=== PATIENT | female | born 1980 | race Two or more races ===

== ENCOUNTER 2018-04-09 20:29 | Emergency (ER) | payer BC ==
[2018-04-09 20:43] VITALS: BP 118/74
[2018-04-09] MEDS ORDERED: Metoclopramide 10 MG/2 ML SDV IVPUSH ONE (20:51)
[2018-04-09] MEDS ORDERED: HYDROmorphone 1 MG/ML Syringe IVPUSH ONE (20:51)
--- NOTE | 2018-04-09 20:55 | EDM.PDOC ---
ED HPI GENERAL MEDICAL PROBLEM - General Chief Complaint: Abdominal Pain Stated Complaint: BAD ABDOMINAL PAIN Time Seen by Provider: 04/09/18 20:50 Source of Information: Reports: Patient History Limitations: Reports: No Limitations - History of Present Illness INITIAL COMMENTS - FREE TEXT/NARRATIVE: 37-year-old female of [place] descent presents to the ED with complaints of mid abdominal pain with nausea and vomiting since this morning. Apparently breakfast came back up and she hasn't eaten since. She is complaining of intermittent strong colicky cramping abdominal pain. She's had diarrhea times one or one loose stool. No blood was noted in either emesis or stool. Previous abdominal surgery is that of a laparoscopic cholecystectomy. The patient doesn't directly speak with me. She is lying there with her eyes closed. Was very cooperative with the nursing staff either. She refused to get out of the wheelchair and onto the bed. To be very histrionic. History is provided by his son and her . Of note she is on Seroquel and other psychoactive medications. Onset: Today Onset Date: 04/09/18 Onset Time: 08:00 Duration: Hour(s): Location: Reports: Abdomen (Mid abdominal pain. Apparently is quite colicky as it is intermittent according to her .) Quality: Reports: Ache, Sharp, Stabbing Severity: Moderate (Most the pain is central abdomen and epigastrium.) Improves with: Reports: None Worsens with: Reports: None Associated Symptoms: Reports: Diaphoresis, Malaise, Nausea/Vomiting (Fairly is vomited twice or 3 times today. She's had diarrhea once.). Denies: Confusion, Chest Pain, Cough, cough w sputum Treatments AIRLINE DISPATCHER: Reports: Other (see below) (None.) mid epigastric Pain Score (Numeric/FACES): 8 - Related Data Allergies Allergy/AdvReac Type Severity Reaction Status Date / Time medroxyprogesterone acetate Allergy Rash Verified 04/09/18 20:43 [From Depo-Provera] Home Meds: Home Meds ALPRAZolam [Alprazolam Odt] 0.5 mg PO DAILY 07/06/15 [History] ClonazePAM [KlonoPIN] 0.5 mg PO BEDTIME 07/06/15 [History] Dicyclomine [Bentyl] 20 mg PO Q6H PRN #6 tablet 04/09/18 [Rx] Ondansetron [Zofran] 4 mg BUCCAL Q6H PRN #5 tab 04/09/18 [Rx] Past Medical History - Past Health History Medical/Surgical History: Denies Medical/Surgical History COOK SHIP History: Reports: Other COOK SHIP History: breast enlargement Psychiatric History: Reports: Anxiety, Depression (She is on venlafaxine and Seroquel.) Other Psychiatric History: insomnia - Past Surgical History GI Surgical History: Reports: Cholecystectomy Female Surgical History: Reports: Section, D&C, Tubal Ligation Social & Family History - Family History Family Medical History: Noncontributory - Tobacco Use Smoking Status *Q: Unknown Ever Smoked - Caffeine Use Caffeine Use: Reports: Other - Recreational Drug Use Recreational Drug Use: No - Living Situation & Occupation Living situation: Reports: , with Family Occupation: Unemployed ( and teenage son are here with her.) ED ROS GENERAL - Review of Systems Review Of Systems: See Below Constitutional: Reports: Chills, Malaise, Fatigue, Decreased Appetite. Denies: Fever HEENT: Reports: No Symptoms Respiratory: Reports: No Symptoms Cardiovascular: Reports: No Symptoms Endocrine: Reports: No Symptoms GI/Abdominal: Reports: Abdominal Pain, Diarrhea (Reportedly one diarrhea stool) , Nausea (See history of present illness), Vomiting (Has vomited 2 or 3 times a day bilious emesis without blood.) : Reports: No Symptoms Musculoskeletal: Reports: No Symptoms Skin: Reports: Diaphoresis (She is cool and clammy the time presentation) Psychiatric: Reports: Anxiety, Other (Patient prefers to lie still with her eyes closed and on answer questions.) Hematologic/Lymphatic: Reports: No Symptoms ( Most the questions were answered by her or her son.) Immunologic: Reports: No Symptoms ED EXAM, GI/ABD - Physical Exam Exam: See Below Exam Limited By: Language Barrier (Speaks primarily Burmese.) General Appearance: Alert, WD/WN, Moderate Distress (Cool and clammy to touch. However temperatures reportedly 36.1. Heart rate 103 respiratory rate of 18 with O2 sats of 98% on room air. BP is 118/74.) Respiratory/Chest: No Respiratory Distress, Lungs Clear, Normal Breath Sounds, No Accessory Muscle Use, Chest Non-Tender Cardiovascular: Normal Peripheral Pulses, No Edema, No Gallop, No Murmur, No Rub , Tachycardia (Mild resting tachycardia at 10 3/m.) GI/Abdominal Exam: Normal Bowel Sounds, Soft, Non-Tender, No Organomegaly, No Abnormal Bruit, No Mass, Pelvis Stable, Other (Well-healed infraumbilical incision from previous laparoscopic cholecystectomy.) Extremities: Normal Inspection, Normal Range of Motion (He did answer a few questions as I was getting ready to leave the room.), Non-Tender, No Pedal Edema Neurological: Alert, Oriented, Normal Cognition, Other Psychiatric: Flat Affect Skin Exam: Cool, Diaphoretic (Cool and clammy to touch.) Course - Vital Signs Last Recorded V/S: Last Vital Signs Temp 36.1 C 04/09/18 20:30 Pulse 103 H 04/09/18 20:30 Resp 18 04/09/18 20:30 BP 118/74 04/09/18 20:30 Pulse Ox 98 04/09/18 20:30 - Orders/Labs/Meds Orders: Active Orders 24 hr Category Date Time Status Dextrose 5%-Lactated Ringers 1,000 ml Med 04/09/18 21:00 Active IV ASDIRECTED Ketorolac [Toradol] Med 04/09/18 21:00 Active 30 mg IVPUSH ONETIME Medication Orders Dextrose/Lactated Ringer's (Dextrose 5%-Lactated Ringers) 1,000 mls @ 999 mls/ hr IV ASDIRECTED ERMIAS Last Admin: 04/09/18 21:02 Dose: 999 mls/hr Ketorolac Tromethamine (Toradol) 30 mg IVPUSH ONETIME [facility] Last Admin: 04/09/18 21:02 Dose: 30 mg Labs: Laboratory Tests 04/09/18 04/09/18 Range/Units 21:00 21:00 WBC 8.73 (3.98-10.04) K/mm3 RBC 4.52 (3.98-5.22) M/mm3 Hgb 14.4 (11.2-15.7) gm/L Hct 41.8 (34.1-44.9) % MCV 92.5 (79.4-94.8) fl MCH 31.9 (25.6-32.2) pg MCHC 34.4 (32.2-35.5) g/dl RDW Std Deviation 42.5 (36.4-46.3) fL Plt Count 314 (182-369) K/mm3 MPV 9.3 L (9.4-12.3) fl Neutrophils % (Manual) 70 H (40-60) % Band Neutrophils % 0 (0-10) % Lymphocytes % (Manual) 26 (20-40) % Atypical Lymphs % 0 % Monocytes % (Manual) 4 (2-10) % Eosinophils % (Manual) 0 L (0.7-5.8) % Basophils % (Manual) 0 L (0.1-1.2) Platelet Estimate Adequate RBC Morph Comment Normal Sodium 140 (136-145) mEq/L Potassium 3.1 L (3.5-5.1) mEq/L Chloride 103 (98-107) mEq/L Carbon Dioxide 25 (21-32) mEq/L Anion Gap 15.1 H (5-15) BUN 10 (7-18) mg/dL Creatinine 0.7 (0.55-1.02) mg/dL Est Cr Clr Drug Dosing 97.09 mL/min Estimated GFR (MDRD) > 60 (>60) mL/min BUN/Creatinine Ratio 14.3 (14-18) Glucose 119 H (74-106) mg/dL Calcium 9.1 (8.5-10.1) mg/dL Total Bilirubin 0.3 (0.2-1.0) mg/dL AST 91 H (15-37) U/L ALT 142 H (14-59) U/L Alkaline Phosphatase 110 (46-116) U/L C-Reactive Protein 0.2 (<1.0) mg/dL Total Protein 7.8 (6.4-8.2) g/dl Albumin 4.2 (3.4-5.0) g/dl Globulin 3.6 gm/dL Albumin/Globulin Ratio 1.2 (1-2) Lipase 113 (73-393) U/L Meds: Medications Generic Name Dose Route Start Last Admin Trade Name Freq PRN Reason Stop Dose Admin Dextrose/Lactated Ringer's 1,000 mls @ 999 mls/hr 04/09/18 21:00 04/09/18 21: 02 Dextrose 5%-Lactated Ringers IV 999 mls/hr ASDIRECTED ERMIAS Administration Ketorolac Tromethamine 30 mg 04/09/18 21:00 04/09/18 21:02 Toradol IVPUSH 30 mg ONETIME ERMIAS Administration Discontinued Medications Generic Name Dose Route Start Last Admin Trade Name Shabbir PRN Reason Stop Dose Admin Dicyclomine HCl 20 mg 04/09/18 21:52 Bentyl PO 04/09/18 21:53 ONETIME ONE Hydromorphone HCl 0.5 mg 04/09/18 20:51 04/09/18 21:02 Dilaudid IVPUSH 04/09/18 20:52 0.5 mg ONETIME ONE Administration Metoclopramide HCl 7.5 mg 04/09/18 20:51 04/09/18 21:03 Reglan IVPUSH 04/09/18 20:52 7.5 mg ONETIME ONE Administration - Radiology Interpretation Free Text/Narrative:: 37-year-old female [place] descent presents to the ED with acute onset of nausea vomiting and diarrhea today. Symptoms started shortly after eating breakfast this morning. She has vomited 2 or 3 times today and has had 1 loose diarrhea stool. No blood in either. Complaining of mid abdominal p It appears to be sharp and stabbing and colicky. Examination reveals normal vital signs. Benign abdominal examination. Bowl sounds are quite quiet at the time my exam. Plan routine labs CBC CMP lipase and CRP to be done. IV will be D5 LR at open. Will be given Reglan 7.5 mg IV with Toradol 30 g IV and Dilaudid 0.5 mg IV for abdominal pain relief. - Re-Assessments/Exams Free Text/Narrative Re-Assessment/Exam: 04/09/18 21:42 Labs reveal a normal white count at 8.73. Differential pending. Hemoglobin is normal at 14.4 hematocrit of 41.8. Reticulocyte count is 314,000. Sodium is 140 with a potassium of 3.1. Chloride 103 with a bicarbonate of 25. Anion gap is minimally elevated at 15.1. BUN is 10 with a creatinine of 0.7. GFR remains greater than 60. Glucose is 119 with a calcium of 9.1. Bilirubin is 0.3 AST is mildly elevated at 91 and AST is elevated at 142. Alk phosphatase is normal 110. C-reactive protein is 0.2. Total protein 7.8 with an albumin fraction of 4.2. Serum lipase is normal at 113. 04/09/18 21:53 patient is feeling much improved. She is alert oriented and speaking to me now when she seems to understand and wished her well. Plan will be a clear fluid diet for the next day or 2. She is to avoid all dairy products and no apple juice or grape juice until stools are formed backup. Write a prescription for Zofran 4 mg sublingual every 4-6 hours necessary for relief of nausea vomiting. Bentyl 20 mg by mouth every 6 hours as needed for relief of abdominal cramping pain. Follow up as needed. 04/09/18 22:00 she has completed a liter of IV fluids. She will therefore be discharged to home. Ventral on the white count came back at 70% neutrophils and no bands. Departure - Departure Time of Disposition: 22:01 Disposition: Home, Self-Care 01 Condition: Fair Clinical Impression: Viral gastroenteritis - Discharge Information *PRESCRIPTION DRUG MONITORING PROGRAM REVIEWED*: Not Applicable *COPY OF PRESCRIPTION DRUG MONITORING REPORT IN PATIENT ROSALIA: Not Applicable Prescriptions: Dicyclomine [Bentyl] 20 mg PO Q6H PRN #6 tablet PRN Reason: Abdominal Pain Ondansetron [Zofran] 4 mg BUCCAL Q6H PRN #5 tab PRN Reason: nausea or vomiting Referrals: PCP,None [Primary Care Provider] - Forms: ED Department Discharge - My Orders Last 24 Hours: My Active Orders 04/09/18 21:00 Dextrose 5%-Lactated Ringers 1,000 ml IV ASDIRECTED Ketorolac [Toradol] 30 mg IVPUSH ONETIME - Assessment/Plan Last 24 Hours: My Active Orders 04/09/18 21:00 Dextrose 5%-Lactated Ringers 1,000 ml IV ASDIRECTED Ketorolac [Toradol] 30 mg IVPUSH ONETIME
[2018-04-09] MEDS ORDERED: Dextrose 5%-Lactated Ringers 1,000 ML IV SCH (21:00)
[2018-04-09] MEDS ORDERED: Ketorolac 30 MG/ML SDV IVPUSH SCH (21:00)
[2018-04-09] MEDS ORDERED: Dicyclomine 10 MG Cap PO ONE (21:52)
== END 2018-04-09 22:16 | disposition home or self-care (01) ==
LOC: JD.ED 20:29
DX: A08.4 Viral intestinal infection, unspecified (principal); Z88.8 Allergy status to other drugs, medicaments and biological substances; Z79.899 Other long term (current) drug therapy
CPT/HCPCS: 36415; 80053; 83690; 85007; 85027; 86140; 96365; 96375; 99284; A9270; J1170; J1885; J2765; J7042; 99283